=== PATIENT | female | born 1985 | race Caucasian/White ===

== ENCOUNTER 2019-01-24 08:10 | Emergency (ER) | payer OTHER ==
[~2019-01-24] VITALS: Ht 170.2 cm; Wt 175.0 kg
[2019-01-24 08:14] VITALS: BP 132/90
[2019-01-24] MEDS ORDERED: AMOX-419 PO (08:37)
== END 2019-01-24 08:52 | disposition home or self-care (01) ==
LOC: ER 08:10
DX: H72.91 Unspecified perforation of tympanic membrane, right ear (principal)
CPT/HCPCS: 99283